=== PATIENT | female | born 1970 | race Caucasian/White ===

== ENCOUNTER 2020-12-09 15:18 | Outpatient (CLI) | payer BC | END 2020-12-09 23:59 | disposition home or self-care (01) | LOC: RAD 15:18 | PROVIDERS: ATTEND Family Medicine | DX: R13.10 Dysphagia, unspecified (principal) | CPT/HCPCS: 74230 ==

== ENCOUNTER 2024-02-23 10:09 | Emergency (ER) | payer OTHER ==
[~2024-02-23] VITALS: Ht 175.3 cm; Wt 83.3 kg
[~2024-02-23 10:09] MED LIST: ACET-2971 PO; DOCU-148 PO; LEVO75TA PO; METF-436 PO; SEMA7TAB2 PO
[2024-02-23] MEDS: ondansetron 4mg rapidly disintigrating tab PO ONE (11:00)
[2024-02-23] MEDS: methylnaltrexone br 12mg/0.6ml inj***SubQ only SQ ONE (12:05)
[2024-02-23] MEDS: normal saline 1000ML IV soln IVB ONE (12:05)
[2024-02-23] MEDS: potassium Cl 20 mEq SR tablet PO STA (12:12)
[2024-02-23] MEDS: magnesium hydroxide 30ml (MOM) UD suspension PO ONE (12:12)
[2024-02-23 12:31] LABS: BASOPHILS # (AUTO) 0.1 X10'3 (0-0.2); BASOPHILS % (AUTO) 0.6 % (0-1); EOSINOPHILS % (AUTO) 0.5 % (0-6); HEMATOCRIT 37.6 % (35.0-45.0); HEMOGLOBIN 12.7 g/dl (12.0-16.0); LYMPHOCYTES # (AUTO) 1.3 X10'3 (1.1-4.8); LYMPHOCYTES % (AUTO) 14.1 % (21-51); MEAN CORPUSCULAR HEMOGLOBIN 30.9 PG (27.0-31.0); MEAN CORPUSCULAR HGB CONC 33.8 g/dL (33.0-36.5); MEAN CORPUSCULAR VOLUME 91.4 FL (78-98); MEAN PLATELET VOLUME 7.5 FL (7.4-10.4); MONOCYTES # (AUTO) 0.4 X10'3 (0-0.9); MONOCYTES % (AUTO) 4.4 % (2-12); NEUTROPHILS # (AUTO) 7.3 X10'3 (1.8-7.7); NEUTROPHILS % (AUTO) 80.4 % (42-75); PLATELET COUNT 326 X10'3 (140-440); RED BLOOD COUNT 4.12 X10'6 (4.20-5.60); RED CELL DISTRIBUTION WIDTH 13.5 % (11.5-14.5); WHITE BLOOD COUNT 9.1 X10'3 (4.5-11.0)
[2024-02-23 12:37] LABS: ALBUMIN 3.4 G/DL (3.4-5.0); ANION GAP 6 (8-16); BLOOD UREA NITROGEN 10 MG/DL (7-18); BUN/CREATININE RATIO 17.9 (10.0-20.0); CHLORIDE 104 MMOL/L (99-107); CREATININE 0.56 MG/DL (0.40-0.90); GLUCOSE 124 MG/DL (70-104); POTASSIUM 3.6 MMOL/L (3.5-5.1); SODIUM 140 MMOL/L (135-145); eCRCL 120 ML/MIN; eGFR > 90 ML/MIN
[2024-02-23] MEDS: lactulose 20gm/30ml cup PO ONE (12:39)
[2024-02-23 14:46] VITALS: BP 126/74; RESP 68; TEMP 98.2; O2SAT 99
== END 2024-02-23 15:00 | disposition home or self-care (01) ==
LOC: ER 10:09
DX: K59.00 Constipation, unspecified (principal); Z88.6 Allergy status to analgesic agent; Z88.5 Allergy status to narcotic agent; Z88.1 Allergy status to other antibiotic agents; Z79.899 Other long term (current) drug therapy; Z79.2 Long term (current) use of antibiotics
CPT/HCPCS: 36415; 80048; 82948; 85025; 96360; 96361; 96372; 99285; J2212; J7030

== ENCOUNTER 2024-04-04 10:30 | Emergency (ER) | payer OTHER ==
[~2024-04-04] VITALS: Ht 172.7 cm; Wt 107.0 kg
[2024-04-04 11:20] VITALS: BP 132/83; PULSE 92; RESP 16; TEMP 98.9; O2SAT 96
== END 2024-04-04 12:04 | disposition home or self-care (01) ==
LOC: ER 10:31
DX: S83.8X2A Sprain of other specified parts of left knee, initial encounter (principal); M19.90 Unspecified osteoarthritis, unspecified site; Z88.8 Allergy status to other drugs, medicaments and biological substances; Z79.899 Other long term (current) drug therapy; Z79.84 Long term (current) use of oral hypoglycemic drugs; Z98.890 Other specified postprocedural states; X58.XXXA Exposure to other specified factors, initial encounter; Y93.89 Activity, other specified; Y92.89 Other specified places as the place of occurrence of the external cause; Y99.8 Other external cause status
CPT/HCPCS: 93971; 99284